=== PATIENT | male | born 1970 | race Two or more races ===

== ENCOUNTER 2023-09-08 17:56 | Emergency (ER) | payer OTHER | END 2023-09-08 20:14 | disposition left against medical advice (07) | LOC: ER 18:14 | DX: R52 Pain, unspecified (principal); Z53.21 Procedure and treatment not carried out due to patient leaving prior to being seen by health care provider ==

== ENCOUNTER 2023-09-15 10:49 | Emergency (ER) | payer OTHER ==
[~2023-09-15] VITALS: Ht 152.4 cm; Wt 90.7 kg
[2023-09-15] MEDS ORDERED: IBUPROFEN 600 MG TABLET ONE (11:27)
[2023-09-15] MEDS: IBUPROFEN 600 MG TABLET PO ONE (11:28)
[2023-09-15 11:41] VITALS: BP 144/88; TEMP 98; O2SAT 98
[2023-09-15] MEDS ORDERED: IBUP-1955 PO (12:18)
== END 2023-09-15 12:33 | disposition home or self-care (01) ==
LOC: ER 10:52
DX: S63.602A Unspecified sprain of left thumb, initial encounter (principal); S63.502A Unspecified sprain of left wrist, initial encounter; W01.0XXA Fall on same level from slipping, tripping and stumbling without subsequent striking against object, initial encounter; Y93.89 Activity, other specified; Y92.89 Other specified places as the place of occurrence of the external cause; Y99.8 Other external cause status
CPT/HCPCS: 73110; 73130-TC